=== PATIENT | male | born 1950 | race Caucasian/White ===

== ENCOUNTER 2022-10-30 11:01 | Outpatient (AMB) | payer MEDICARE, OTHER, SELFPAY ==
--- NOTE | 2022-10-30 11:06 | A.OFFVIS_ITS ---
Intake Vital Signs 10/30/22 11:09 Height 5 ft 10 in Weight 176 lb BMI 25.3 BP 150/80 H Blood Pressure Location Rt brachial Position Sitting Pulse 71 Pulse Source Pulse Oximeter Pulse Oximetry (%) 96 Oxygen Delivery Method Room Air Intake Visit Reasons: NPV-Visual Hallucinations-CONFIRMED Intake Note: Patient presents for hallucinations. Patient states My memory loss and cant get my thoughts straight,forgetfullness,lately I've been dropping things and not realizing it Allergies No Known Allergies Allergy (Verified 10/30/22 11:11) Medication List - Last Reconciled 10/30/22 by Eli San MD aspirin 81 mg PO DAILY calcium carbonate-vitamin D3 500 mg-5 mcg (200 unit) 1 tab PO DAILY ibuprofen 400 mg PO Q8H metoprolol tartrate 12.5 mg PO BID omeprazole 20 mg PO DAILY oxybutynin chloride ER 15 mg PO DAILY pregabalin 225 mg PO BID tamsulosin 0.4 mg PO DAILY vit [id number] [id number] mg (Bioflex) tabs PO HPI HPI Comments History of Present Illness Details 72y/o male comes for evaluation of hallucinations. It started after treatment of his Prostrate cancer with Eligard injections ( Leuprolide) about 2 years ago.He stopped Eligard 1 year ago but hallucinations decreased but persisted. He had no insight into his hallucinations and says he started living his hallucinations. He was seeing people in his house , outside in his yard. He had hallucinations everyday and he was paranoid delusional , angry . He used to be a ex cocaine abuser , was clean for 25 years but he restarted cocaine to help his pain during treatment in Mar 2022 . In July 2022 he went to rehab and has been clean since then. He denies past h/o anger management issues.He reports word finding difficulties , short term memory issues. He denies any headaches He has sleep issues- insomnia ,. No snoring. [facility] Medical History (Updated 10/30/22 @ 12:06 by Eli San MD) Back pain Borderline hyperlipidemia CAD (coronary artery disease) Cocaine abuse in remission COPD (chronic obstructive pulmonary disease) Fibromyalgia GERD (gastroesophageal reflux disease) Hallucinations, visual HTN (hypertension) Memory loss Prostate cancer Sacral fracture Surgical History History of hernia surgery History of rotator cuff surgery Stented coronary artery Family History Father Lung cancer Mother Lung cancer Social History Alcohol intake: current Patient Tobacco Use Status: Current everyday Tobacco user Tobacco use type: Cigarette Review of Systems Const Reports difficulty sleeping and Denies weight loss ENT Reports dysphagia GI Reports dysphagia Musc Reports back pain, Reports arthralgias and Reports numbness Neuro Reports behavioral changes and Reports numbness Psych Reports anxiety, Reports behavioral changes, Reports irritability and Reports tactile hallucinations Physical Exam Vital Signs: Last Vital Signs Pulse 71 10/30/22 11:09 BP 150/80 H 10/30/22 11:09 Pulse Ox 96 10/30/22 11:09 Oxygen Delivery Method Room Air 10/30/22 11:09 BMI result Body Mass Index 25.3 Const General: cooperative, comfortable and no acute distress Nutritional Appearance: average body habitus Orientation/consciousness: patient oriented x3 Neuro Other: mild weakness - limited by pain Gait stooped in lower back and antalgic gait General: patient oriented x3, tone normal and moves all extremities Cranial nerves: Yes Facial sensation intact/muscles of mastication intact, Yes Bilaterally intact EOM present, Yes Nystagmus not present, Yes Normal facial strength present, Yes Midline tongue present and Yes Symmetric palate elevation present Cognition (Neuro): normal cognition Gait exam (Neuro): Antalgic gait present Motor exam (neuro): 5/5 motor strength present throughout Deep tendon reflexes (DTR's): Right triceps reflex intensity grade: 1+, Left triceps reflex intensity grade: 1+, Rt Biceps (C5, C6): 1+, Left biceps reflex intensity grade: 1+, Right brachioradialis reflex intensity grade: 1+, Left brachioradialis reflex intensity grade: 1+, Right patellar reflex intensity grade: 1+ and Left patellar reflex intensity grade: 1+ Coordination: [id number] test normal Assessment & Plan Assessment & Plan (1) Hallucinations, visual: Code(s): R44.1 - Visual hallucinations (2) Memory loss: Comment: mood related Code(s): R41.3 - Other amnesia Plan MRI brain EEG to evaluate Psychiatry evaluation Orders: Orders MR head/brain wo con Today R41.3 - Other amnesia, R44.1 - Visual hallucinations EEG electroencephalogram Today R41.3 - Other amnesia, R44.1 - Visual hallucinations Referrals Psychiatry Referral R41.3 - Other amnesia, R44.1 - Visual hallucinations Coding Level of Care Code New Pt Level 4 (23768) Diagnoses Hallucinations, visual R44.1 Memory loss R41.3
[2022-10-30 11:09] VITALS: BP 150/80; PULSE 71; O2SAT 96; BMI 25.3
== END 2022-10-30 11:50 | disposition home or self-care (01) ==
PROVIDERS: Visit Provider Psychiatry & Neurology Neurology
DX: R44.1 Visual hallucinations (principal); R41.3 Other amnesia
CPT/HCPCS: 99204

== ENCOUNTER → 2022-10-30 11:01 | Outpatient (BNVA) | payer MEDICARE, OTHER, SELFPAY | PROVIDERS: Visit Provider Psychiatry & Neurology Neurology | DX: R44.1 Visual hallucinations (principal); R41.3 Other amnesia | CPT/HCPCS: 99202 ==

== ENCOUNTER 2022-11-26 12:43 | Outpatient (REF) | payer MEDICARE, OTHER, SELFPAY ==
--- NOTE | 2022-11-26 12:52 | EEG_ITS ---
This is a 16-channel EEG with an EKG lead. The patient is reported awake during the tracing. Background EEG rhythm is 7 to 8 hertz, 5 to 50 microvolt posteriorly and lower amplitude fast anteriorly. Photic stimulation does not produce any significant driving. Hyperventilation is not performed. Cardiac lead does not reveal any significant abnormality. No sharp wave spikes or paroxysmal tendency. IMPRESSION: Mild generalized slowing of the type that many times is noted with underlying dementia. Clinical correlation is recommended. MD SAILAJA Saez/JEANETTE / [phone]
== END 2022-11-26 12:44 | disposition home or self-care (01) ==
LOC: HO.NEURO 12:43
PROVIDERS: PCP Hospitalist; Visit Provider Psychiatry & Neurology Neurology
DX: R41.3 Other amnesia (principal); R44.1 Visual hallucinations
CPT/HCPCS: 95816

== ENCOUNTER 2022-12-24 10:52 | Outpatient (REF) | payer MEDICARE, OTHER, SELFPAY ==
--- NOTE | ~2022-12-24 | MR_ITS ---
EXAMINATION: MR BRAIN WITHOUT CONTRAST CLINICAL INFORMATION: Visual hallucinations COMPARISON: None TECHNIQUE: Multiplanar multisequence MR imaging of the brain was obtained without intravenous contrast. FINDINGS: There is no acute infarct on diffusion-weighted imaging. There is no intracranial hemorrhage on iron-sensitive imaging. No extra-axial collection or mass effect/herniation. Scattered periventricular and deep white matter T2 FLAIR hyperintensities consistent with mild underlying microangiopathy. No hydrocephalus. Mild generalized cerebral volume loss with commensurate sulcal and ventricular prominence. The major flow voids at the skull base are preserved. The midline structures are normal. The cerebellar tonsils are normally positioned. The craniocervical junction is normal. Marrow signal is within normal limits. The visualized soft tissues are without significant abnormality. Small right mastoid fluid and trace maxillary and ethmoid sinus mucosal thickening. MR/MR head/brain wo con IMPRESSION: Mild chronic white matter microangiopathy and generalized cerebral volume loss. Otherwise unremarkable noncontrast MRI of the brain.
== END 2022-12-24 10:53 | disposition home or self-care (01) ==
LOC: HO.MRI 10:52
PROVIDERS: PCP Hospitalist; Visit Provider Psychiatry & Neurology Neurology
DX: R44.1 Visual hallucinations (principal); R41.3 Other amnesia
CPT/HCPCS: 70551

== ENCOUNTER 2023-02-04 11:01 | Outpatient (AMB) | payer MEDICARE, OTHER, SELFPAY ==
--- NOTE | 2023-02-04 11:04 | MHC.OFFVIS ---
Intake Vital Signs 02/04/23 11:06 Height 5 ft 10 in Weight 195 lb 4 oz BMI 28.0 BP 164/74 H Blood Pressure Location Rt brachial Position Sitting Respiration 15 Pulse 69 Pulse Source Pulse Oximeter Pulse Oximetry (%) 94 Oxygen Delivery Method Room Air Intake Visit Reasons: 3m follow up Visual Hallucinations Intake Note: Pt presents to the office for a 3 month follow up of visual hallucinations. He reports he hasn't had any hallucinations since his last visit. He states the drug must have wore off Foundation Relations Manager Required: No Allergies No Known Allergies Allergy (Verified 02/04/23 11:10) Medication List - Last Reconciled 02/04/23 by Eli San MD aspirin 81 mg PO DAILY calcium carbonate-vitamin D3 500 mg-5 mcg (200 unit) 1 tab PO DAILY ibuprofen 400 mg PO Q8H metoprolol tartrate 12.5 mg PO BID omeprazole 20 mg PO DAILY oxybutynin chloride ER 15 mg PO DAILY pregabalin 225 mg PO BID tamsulosin 0.4 mg PO DAILY vit [id number] [id number] mg (Bioflex) tabs PO HPI HPI Comments History of Present Illness Details 72y/o male comes for follow up of hallucinations. No hallucinations since his last visit. MRI and EEG were unremarkable. It started after treatment of his Prostrate cancer with Eligard injections ( Leuprolide) about 2 years ago.He stopped Eligard 1 year ago but hallucinations decreased but persisted. He had no insight into his hallucinations and says he started living his hallucinations. He was seeing people in his house , outside in his yard. He had hallucinations everyday and he was paranoid delusional , angry . He used to be a ex cocaine abuser , was clean for 25 years but he restarted cocaine to help his pain during treatment in Mar 2022 . In July 2022 he went to rehab and has been clean since then. He denies past h/o anger management issues.He reports word finding difficulties , short term memory issues. He denies any headaches He has sleep issues- insomnia ,. No snoring. [facility] Medical History Cocaine abuse in remission Hallucinations, visual Memory loss Back pain Sacral fracture CAD (coronary artery disease) Fibromyalgia GERD (gastroesophageal reflux disease) COPD (chronic obstructive pulmonary disease) Prostate cancer Borderline hyperlipidemia HTN (hypertension) Surgical History Stented coronary artery History of hernia surgery History of rotator cuff surgery Family History Father Lung cancer Mother Lung cancer Social History Alcohol intake: current Patient Tobacco Use Status: Current everyday Tobacco user Tobacco use type: Cigarette Physical Exam Vital Signs: Last Vital Signs Pulse 69 02/04/23 11:06 Resp 15 02/04/23 11:06 BP 164/74 H 02/04/23 11:06 Pulse Ox 94 02/04/23 11:06 Oxygen Delivery Method Room Air 02/04/23 11:06 BMI result Body Mass Index 28.0 Const General: cooperative, comfortable and no acute distress Nutritional Appearance: average body habitus Orientation/consciousness: patient oriented x3 Neuro Other: mild weakness - limited by pain Gait stooped in lower back and antalgic gait General: patient oriented x3, tone normal and moves all extremities Cranial nerves: Yes Facial sensation intact/muscles of mastication intact, Yes Bilaterally intact EOM present, Yes Nystagmus not present, Yes Normal facial strength present, Yes Midline tongue present and Yes Symmetric palate elevation present Cognition (Neuro): normal cognition Gait exam (Neuro): Antalgic gait present Motor exam (neuro): 5/5 motor strength present throughout Coordination: [id number] test normal Assessment & Plan Assessment & Plan (1) Hallucinations, visual: Comment: likely medication effect Code(s): R44.1 - Visual hallucinations (2) Memory loss: Comment: mood related Code(s): R41.3 - Other amnesia Plan MRI brain EEG - reviewed with patient. Psychiatry evaluation Coding Level of Care Code Est Pt Level 3 (62935) Diagnoses Hallucinations, visual R44.1 Memory loss R41.3
[2023-02-04 11:06] VITALS: BP 164/74; PULSE 69; RESP 15; O2SAT 94; BMI 28.0
== END 2023-02-04 11:24 | disposition home or self-care (01) ==
PROVIDERS: PCP Hospitalist; Visit Provider Psychiatry & Neurology Neurology
DX: R44.1 Visual hallucinations (principal); R41.3 Other amnesia
CPT/HCPCS: 99213

== ENCOUNTER → 2023-02-04 11:01 | Outpatient (BNVA) | payer MEDICARE, OTHER, SELFPAY | PROVIDERS: PCP Hospitalist; Visit Provider Psychiatry & Neurology Neurology | DX: R44.1 Visual hallucinations (principal); R41.3 Other amnesia | CPT/HCPCS: 99212 ==